=== PATIENT | female | born 1965 | race Caucasian/White ===

== ENCOUNTER 2016-10-09 14:07 | Emergency (ER) | payer OTHER ==
[~2016-10-09] VITALS: Ht 177.8 cm; Wt 121.2 kg
[~2016-10-09 14:07] MED LIST: ADVAIR 250/501 DISK IH; FLEXERIL10 MG PO; IBUPROFEN800 MG PO; MICONAZOLE NITR30 GM TP; MOTRIN800 MG PO; NO MEDS; NOHOMEMEDS; SYNTHROID25 MCG PO; TRAMADOL HCL50 MG PO; ULTRAM50 MG PO; ZYRTEC10 M2 PO; [UNRECOGNIZED DRUG - OTHER]
[2016-10-09 14:54] LABS: HEMATOCRIT 44.4 % (36.0-46.0); MCH 31.2 PG (29.0-34.0); MCHC 33.6 G/DL (30.0-36.0); MCV 92.9 FL (83-99); MEAN PLAT.VOLUME 9.9 uM^3 (9.5-12.4); PLATELET COUNT 252 K/uL (156-360); RBC DIS.WIDTH-CV 12.8 % (11.8-14.6); RBC DIS.WIDTH-SD 43.9 % (39-53); RED BLOOD COUNT 4.78 M/uL (3.80-5.20); WHITE BLOOD COUNT 10.4 K/uL (4.1-10.2)
[2016-10-09 15:08] LABS: CHLORIDE 109 mEq/L (99-109); POTASSIUM 3.4 mEq/L (3.7-5.4); SODIUM 143 mEq/L (136-147)
[2016-10-09 15:10] LABS: GLUCOSE 120 mg/dL (70-99)
[2016-10-09 15:11] LABS: ANION GAP 12 MEQ/L (2-14)
[2016-10-09 15:13] LABS: GFR ESTIMATE (CALCULATED) > 59 mL/min/
[2016-10-09 15:14] LABS: TROP-I INTERPRETATION NEGATIVE; TROPONIN-I < 0.01 ng/mL (0.0-0.30); UREA NITROGEN (BUN) 18 mg/dL (9-23)
[2016-10-09] MEDS ORDERED: INDOCIN50 MG PO (15:50)
[2016-10-09 16:05] VITALS: BP 158/110
== END 2016-10-09 16:05 | disposition home or self-care (01) ==
LOC: EME 14:07
DX: G56.22 Lesion of ulnar nerve, left upper limb (principal); J44.9 Chronic obstructive pulmonary disease, unspecified; I10 Essential (primary) hypertension; Z85.850 Personal history of malignant neoplasm of thyroid; F17.200 Nicotine dependence, unspecified, uncomplicated
CPT/HCPCS: 71020; 80048; 84484; 85027; 93005; 99281; 99284

== ENCOUNTER 2017-02-08 05:54 | Emergency (ER) | payer OTHER ==
[~2017-02-08] VITALS: Ht 160 cm; Wt 123.5 kg
[~2017-02-08 05:54] MED LIST changes: +INDOCIN50 MG PO
[2017-02-08 05:57] VITALS: BP 154/75
== END 2017-02-08 06:35 | disposition home or self-care (01) ==
LOC: EME 05:54
DX: H92.22 Otorrhagia, left ear (principal); Y93.E8 Activity, other personal hygiene; F17.200 Nicotine dependence, unspecified, uncomplicated; Z85.828 Personal history of other malignant neoplasm of skin; Z98.890 Other specified postprocedural states; Z88.8 Allergy status to other drugs, medicaments and biological substances; Z91.030 Bee allergy status
CPT/HCPCS: 99281; 99284

== ENCOUNTER 2017-10-23 02:53 | Emergency (ER) | payer OTHER ==
[~2017-10-23] VITALS: Ht 175.3 cm; Wt 112.8 kg
[2017-10-23] MEDS ORDERED: ABREVA2 GM TP (04:23)
[2017-10-23 04:33] VITALS: BP 162/112
== END 2017-10-23 04:35 | disposition home or self-care (01) ==
LOC: EME 02:53
DX: S00.521A Blister (nonthermal) of lip, initial encounter (principal); X58.XXXA Exposure to other specified factors, initial encounter; F17.290 Nicotine dependence, other tobacco product, uncomplicated; Z88.8 Allergy status to other drugs, medicaments and biological substances
CPT/HCPCS: 99281; 99283